=== PATIENT | female | born 1995 | race Caucasian/White ===

== ENCOUNTER 2017-09-01 15:48 | Emergency (ER) | payer OTHER ==
--- NOTE | 2017-09-01 17:06 | ER Document Report ---
HPI - HPI Pain Level: 4 Notes: Patient is a 22-year-old female who presents ED complaining of left knee pain status post injury prior to arrival. Patient states that she was skating when she fell on her knee and a rollerblade hit her in the knee. Patient states that most of her pain is medially. Patient states that she has been limping and has been having trouble bending her knee because of the pain. Patient has noticed a little area of swelling on the medial side. No other concerns or complaints at this time. Pain does not radiate. Denies any headache, fever, head injury, neck pain, URI, sore throat, chest pain, palpitations, syncope, cough, shortness of breath, wheeze, dyspnea, abdominal pain, nausea/vomiting/ diarrhea, urinary retention, dysuria, hematuria, numbness/tingling, muscle paralysis/weakness, or rash. - ROS Systems Reviewed and Negative: Yes All other systems reviewed and negative Past Medical History - Social History Smoking Status: Never Smoker Family History: Reviewed & Not Pertinent Vertical Provider Document - CONSTITUTIONAL Agree With Documented VS: Yes Notes: PHYSICAL EXAMINATION: GENERAL: Well-appearing, well-nourished and in no acute distress. LUNGS: Breath sounds clear to auscultation bilaterally and equal. No wheezes rales or rhonchi. HEART: Regular rate and rhythm without murmurs, rubs, gallops. Musculoskeletal: Left knee: LROM to passive/active. Strength 5+/5. + mild swelling to the medial proximal knee. + tenderness to the medial patella and medial prox knee. Pt would not allow for adequate ligamentous/meniscus testing at this time. No posterior pain. Sally neg b/l. Patellar/Quad tendon intact. Extremities: No cyanosis, clubbing, or edema b/l. Peripheral pulses 2+. Capillary refill less than 3 seconds. NEUROLOGICAL: Normal speech. Normal sensory, motor exams PSYCH: Normal mood, normal affect. SKIN: Warm, Dry, normal turgor, no rashes or lesions noted. - RESPIRATORY O2 Sat by Pulse Oximetry: 97 Course - Re-evaluation Re-evalutation: 09/01/17 17:12 Patient is an afebrile, well-hydrated, 22-year-old female who presents ED with left knee pain, suspect contusion. Vitals are stable. PE is otherwise unremarkable for any neurovascular compress, obvious tendon/ligament rupture, obvious fracture/dislocation, septic joint. X-ray was unremarkable for any acute pathology. Crutches were provided an Abdi wrap was placed. Recommend conservative measures for symptoms with close monitoring. Recheck with the PCM in 3-5 days. Consider consult with orthopedics/physical therapy. Return to the ED with any worsening/concerning symptoms otherwise as reviewed discharge. Patient is in agreement. - Vital Signs Vital signs: Temp Pulse Resp BP Pulse Ox 97.7 F 92 14 118/75 97 09/01/17 16:00 09/01/17 16:00 09/01/17 16:00 09/01/17 16:00 09/01/17 16:00 Discharge - Discharge Clinical Impression: Left knee pain Qualifiers: Chronicity: acute Qualified Code(s): M25.562 - Pain in left knee Condition: Stable Disposition: HOME, SELF-CARE Instructions: Abdi Wrap ([facility]), Contusion ([facility]), Use of Crutches ([facility]), Ice & Elevation ([facility]) Additional Instructions: Rest, Ice, Compression, Elevation Use crutches/abdi-wrap as directed Tylenol/ibuprofen as needed Light stretches daily Strength exercises as able Moist heat and massage may help F/u with your PCP in 3-5 days for a recheck Consider consult(s) with Orthopedics/physical therapy for ongoing/worsening symptoms Return to the ED with any worsening symptoms and/or development of fever, headache, chest pain, palpitations, syncope, shortness of breath, trouble breathing, abdominal pain, n/v/d, muscle weakness/paralysis, numbness/tingling, swelling, redness, or other worsening symptoms that are concerning to you. Prescriptions: Naproxen 500 mg PO BID PRN #30 tablet PRN Reason: Referrals: [facility] [Provider Group] - Follow up as needed
--- NOTE | 2017-09-01 17:11 | RADIOLOGY REPORT (SQ) ---
EXAM DESCRIPTION: KNEE LEFT 4 VIEW COMPLETED DATE/TIME: 09/01/2017 4:55 pm REASON FOR STUDY: left knee pain s/p injury, plz include sunrise COMPARISON: None. NUMBER OF VIEWS: Five views. TECHNIQUE: AP, lateral, both oblique, and sunrise patella radiographic images acquired of the left k nee. LIMITATIONS: None. FINDINGS: MINERALIZATION: Normal. BONES: No acute fracture or dislocation. No worrisome bone lesions. JOINT: No effusion. SOFT TISSUES: No soft tissue swelling. No radio-opaque foreign body. OTHER: No other significant finding. IMPRESSION: NEGATIVE STUDY OF THE LEFT KNEE. NO RADIOGRAPHIC EVIDENCE OF ACUTE INJURY. TECHNICAL DOCUMENTATION: JOB ID: [id number] [employer]- All Rights Reserved
[2017-09-01 17:32] VITALS: BP 96/69
== END 2017-09-01 17:32 | disposition home or self-care (01) ==
LOC: ER 15:48
DX: M25.562 Pain in left knee (principal); W19.XXXA Unspecified fall, initial encounter; Y93.51 Activity, roller skating (inline) and skateboarding
CPT/HCPCS: 99283

== ENCOUNTER 2018-05-11 07:02 | Emergency (ER) | payer MEDICAID, OTHER ==
[2018-05-11] MEDS ORDERED: NORMAL SALINE 1000 ML 1,000 ML IV ONE (07:37)
[2018-05-11] MEDS ORDERED: ONDANSETRON HCL INJ/PF 4 MG/2 ML SDV IV ONE ×2 (07:37→09:17)
--- NOTE | 2018-05-11 07:38 | ER Document Report ---
ED GI/ - General Chief Complaint: Abdominal Pain Stated Complaint: LOWER ABDOMINAL PAIN Time Seen by Provider: 05/11/18 07:31 Mode of Arrival: Ambulatory Information source: Patient Notes: Patient presents complaining of nausea vomiting diarrhea that started last night around 10 PM. Patient states that she had [place] food and that her symptoms started shortly after eating this meal. Patient states she is vomited about 10 times and had same number of diarrhea bowel movements. Patient states that the vomiting and diarrhea symptoms started initially and then she started to develop epigastric and lower abdominal pain. Patient denies any fever but does report chills. Patient denies any urinary symptoms. Patient suspects that she has food poisoning. - HPI Patient complains to provider of: Abdominal pain, Diarrhea, Vomiting. No: , Vaginal bleeding Onset: Yesterday Timing/Duration: Gradual Quality of pain: Achy, Cramping Pain Level: 3 Location: Epigastric, Pelvis Vaginal bleeding (Compared to normal period): None Associated symptoms: Chills, Diarrhea, Loss of appetite, Nausea, Vomiting Exacerbated by: Denies Relieved by: Denies Similar symptoms previously: No Recently seen / treated by doctor: No - Related Data Allergies/Adverse Reactions: No Known Allergies Allergy (Unverified 05/11/18 07:54) Past Medical History - General Information source: Patient - Social History Smoking Status: Never Smoker Smoking Education Provided: No Frequency of alcohol use: None Drug Abuse: None Occupation: None Lives with: Family Family History: Reviewed & Not Pertinent - Medical History Medical History: Other - Cerebral palsy Renal/ Medical History: Denies: Hx Peritoneal Dialysis GI Medical History: Reports: Hx Gastroesophageal Reflux Disease Surgical Hx: Negative Review of Systems - Review of Systems Constitutional: Chills. denies: Fever EENT: No symptoms reported Cardiovascular: No symptoms reported. denies: Chest pain Respiratory: No symptoms reported. denies: Cough, Short of breath Gastrointestinal: Abdominal pain, Diarrhea, Nausea, Vomiting, Poor appetite. denies: Constipation Genitourinary: No symptoms reported Female Genitourinary: No symptoms reported Musculoskeletal: No symptoms reported. denies: Back pain Skin: No symptoms reported. denies: Rash Hematologic/Lymphatic: No symptoms reported Neurological/Psychological: No symptoms reported Physical Exam - Vital signs Vitals: Temp Pulse Resp BP Pulse Ox 98.3 F 84 16 110/78 100 05/11/18 07:07 05/11/18 07:07 05/11/18 07:07 05/11/18 07:07 05/11/18 07:07 - General General appearance: Appears well, Alert In distress: None - HEENT Head: Normocephalic, Atraumatic Eyes: Normal Conjunctiva: Normal Nasal: Normal Mouth/Lips: Normal Mucous membranes: Dry Pharynx: Normal Neck: Normal, Supple. No: Lymphadenopathy - Respiratory Respiratory status: No respiratory distress Chest status: Nontender Breath sounds: Normal. No: Rales, Rhonchi, Stridor, Wheezing Chest palpation: Normal - Cardiovascular Rhythm: Regular Heart sounds: S1 appreciated, S2 appreciated Murmur: No - Abdominal Inspection: Normal Distension: No distension Bowel sounds: Normal Tenderness: Tender - epig, lower pelvic. No: Guarding Organomegaly: No organomegaly - Back Back: Normal, Nontender. No: CVA tenderness - Extremities General upper extremity: Normal inspection, Normal strength General lower extremity: Normal inspection, Normal strength - Neurological Neuro grossly intact: Yes Cognition: Normal [place] Coma Scale Eye Opening: Spontaneous Prema Coma Scale Verbal: Oriented [place] Coma Scale Motor: Obeys Commands [place] Coma Scale Total: 15 - Psychological Associated symptoms: Normal affect, Normal mood - Skin Skin Temperature: Warm Skin Moisture: Dry Skin Color: Normal Course - Re-evaluation Re-evalutation: 05/11/18 09:17 Patient reports that nausea is improved although not resolved. Patient states abdominal pain is gone at this time. Abdomen is soft and nontender. Additional nausea medication ordered. 05/11/18 10:29 Patient reports that nausea is resolved at this time. Patient without any additional vomiting during ER stay. Patient denies any urinary tract symptoms such as frequency or dysuria. Patient with some leukocyte esterase noted on urinalysis although no other signs worrisome for infection. Will culture urine at this time and defer any antibiotics. Discussed plan of care with patient, patient family agreeable. Patient presents with abdominal pain without signs of peritonitis or other life-threatening or serious etiology. Patient appears stable for discharge and has been instructed to return immediately if the symptoms worsen in any way for reevaluation. The patient has been instructed to return if the symptoms worsen or change in any way. - Vital Signs Vital signs: Temp Pulse Resp BP Pulse Ox 97.7 F 86 16 97/60 L 97 05/11/18 11:00 05/11/18 11:00 05/11/18 07:08 05/11/18 11:00 05/11/18 07:08 - Laboratory Result Diagrams: 05/11/18 08:06 05/11/18 08:06 Laboratory results interpreted by me: 05/11/18 09:46 Urine Urobilinogen 2.0 H Ur Leukocyte Esterase TRACE H Labs- Entire Visit 05/11/18 05/11/18 05/11/18 08:06 08:06 08:06 WBC 5.8 RBC 4.19 Hgb 13.2 Hct 38.5 MCV 92 MCH 31.4 MCHC 34.2 RDW 13.7 Plt Count 184 Seg Neutrophils % 59.1 Lymphocytes % 29.6 Monocytes % 9.6 Eosinophils % 1.3 Basophils % 0.4 Absolute Neutrophils 3.4 Absolute Lymphocytes 1.7 Absolute Monocytes 0.6 Absolute Eosinophils 0.1 Absolute Basophils 0.0 Sodium 139.3 Potassium 3.9 Chloride 105 Carbon Dioxide 24 Anion Gap 10 BUN 9 Creatinine 0.56 Est GFR ( Amer) > 60 Est GFR (Non-Af Amer) > 60 Glucose 88 Calcium 9.5 Total Bilirubin 0.5 Direct Bilirubin 0.0 Neonat Total Bilirubin Not Reportable Neonat Direct Bilirubin Not Reportable Neonat Indirect Bili Not Reportable AST 18 ALT 18 Alkaline Phosphatase 53 Total Protein 6.5 Albumin 3.9 Lipase 81.1 Serum HCG, Qual NEGATIVE Urine Color Urine Appearance Urine pH Ur Specific Vilas Urine Protein Urine Glucose (UA) Urine Ketones Urine Blood Urine Nitrite Urine Bilirubin Urine Urobilinogen Ur Leukocyte Esterase Urine WBC (Auto) Urine RBC (Auto) Squamous Epi Cells Auto Urine Mucus (Auto) Urine Ascorbic Acid 05/11/18 09:46 WBC RBC Hgb Hct MCV MCH MCHC RDW Plt Count Seg Neutrophils % Lymphocytes % Monocytes % Eosinophils % Basophils % Absolute Neutrophils Absolute Lymphocytes Absolute Monocytes Absolute Eosinophils Absolute Basophils Sodium Potassium Chloride Carbon Dioxide Anion Gap BUN Creatinine Est GFR ( Amer) Est GFR (Non-Af Amer) Glucose Calcium Total Bilirubin Direct Bilirubin Neonat Total Bilirubin Neonat Direct Bilirubin Neonat Indirect Bili AST ALT Alkaline Phosphatase Total Protein Albumin Lipase Serum HCG, Qual Urine Color YELLOW Urine Appearance SLIGHTLY-CLOUDY Urine pH 5.0 Ur Specific [place] 1.026 Urine Protein NEGATIVE Urine Glucose (UA) NEGATIVE Urine Ketones NEGATIVE Urine Blood NEGATIVE Urine Nitrite NEGATIVE Urine Bilirubin NEGATIVE Urine Urobilinogen 2.0 H Ur Leukocyte Esterase TRACE H Urine WBC (Auto) 11 Urine RBC (Auto) 2 Squamous Epi Cells Auto 5 Urine Mucus (Auto) MANY Urine Ascorbic Acid NEGATIVE Discharge - Discharge Clinical Impression: Nausea vomiting and diarrhea Abdominal pain Qualifiers: Abdominal location: unspecified location Qualified Code(s): R10.9 - Unspecified abdominal pain Condition: Stable Disposition: HOME, SELF-CARE Additional Instructions: Return immediately for any new or worsening symptoms Followup with your primary care provider, call tomorrow to make a followup appointment VOMITING: Vomiting (or nausea without vomiting) can be caused by many other different problems. It can mean that something's wrong with the stomach, such as ulcers or inflammation or the intestinal tract, such as appendicitis. But it can also be a symptom of a problem that has nothing to do with the stomach or intestines. Vomiting is common with severe headaches, earaches, tonsillitis, and kidney infections, etc. We see it with pneumonia or heart attacks. Drugs can cause nausea and vomiting. Many abdominal problems cause vomiting; for example, gallstones, kidney stones, pancreatitis, and intestinal obstruction ( blocked bowels). In most cases, curing the vomiting depends on fixing the problem that caused it. For temporary relief, we may use an anti-nausea medicine. For home use, we can prescribe suppositories, chewable pills, pills that dissolve in the mouth, or liquid anti-nausea drugs. If the vomiting seems to be caused by a problem in the stomach, acid-suppressing drugs may be prescribed as well. It's important to avoid dehydration. Sip small amounts of clear liquids ( soft drinks, tea, broth, etc) . Try to take fluids frequently even if you are vomiting to prevent dehydration. Take increasing amounts of fluid and when liquids are being consumed successfully, advance to small amounts of bland food (toast, soups, mashed potatoes, etc.) until you are able to resume a regular diet. Avoid aspirin, tobacco, and alcohol. If the vomiting worsens, if the problem that's making you vomit worsens, or if there's evidence of bleeding in the stomach (such as black, tarry stool, or bloody or black vomit), you should return immediately. Also, return if abdominal pain worsens or becomes localized to one area or you develop high fever. Call your doctor if you aren't improved in 24 hours. DIARRHEA, NON-SPECIFIC: Diarrhea means frequent, watery stools. There are many causes. Any problem that keeps the intestinal tract from absorbing water from the stool can lead to diarrhea. A sudden new diarrhea problem is usually caused by a virus, food sensitivity, toxic bacteria, or drugs. In this case, we expect the problem to go away soon. Testing is done only if you seem seriously ill from the diarrhea. If you have chronic diarrhea, or diarrhea that keeps coming back, we need to find out why. Chronic diarrhea can be due to inflammation of the bowels such as Crohn's disease or ulcerative colitis, food sensitivity such as intolerance to lactose or wheat protein, irritable bowel syndrome, and other problems. If your diarrhea is a significant problem but it's not clear why you have it, we' ll refer you to a specialist for further testing. During an episode of diarrhea, drink small amounts (two to six ounces) of clear liquids (soft drinks, sport drinks, herb teas, broth, etc). Take fluids frequently to prevent dehydration. It's usually not a problem to take mild anti- diarrhea medication such as Kaopectate or Pepto-Bismol. As the diarrhea eases, advance to small amounts of bland food (mashed potato, toast) for 24 hours. Call the physician if blood appears in your vomit or stool, if vomiting lasts longer than 24 hours, if the abdominal pain worsens or becomes localized to one area, if you develop high fever, or if you become lightheaded and weak. INTRAVENOUS (I V) FLUIDS: As part of your care today, you received intravenous (IV) fluids. IV fluids are administered to patients who are dehydrated or to those who have certain chemical (electrolyte) abnormalities that need correcting. ANTINAUSEA MEDICATION: You have been given a medication to suppress nausea and vomiting. This type of medication can be given as a shot, pill, or suppository. It will usually last for many hours. Pills and shots usually last six to eight hours. For the typical illness, only one or two doses of the medication may be necessary. Mild lightheadedness may occur. This type of medicine can cause drowsiness. Do not drive or operate dangerous machinery while under its influence. Do not mix with alcohol. See your doctor at once if you have muscle spasms or tightness, or uncontrollable motions (particularly of the neck, mouth, or jaw). Persistent vomiting or severe lightheadedness should also be evaluated by the physician. FOLLOW-UP CARE: If you have been referred to a physician for follow-up care, call the physician s office for an appointment as you were instructed or within the next two days. If you experience worsening or a significant change in your symptoms, notify the physician immediately or return to the Emergency Department at any time for re-evaluation. Prescriptions: Ondansetron HCl [Zofran 4 mg Tablet] 1 - 2 tab PO Q6 PRN #15 tablet PRN Reason: [facility]errals: [facility] [Provider Group] - Follow up as needed
[2018-05-11 08:39] LABS: ABSOLUTE EOSINOPHILS # (AUTO) 0.1 10^3/uL (0.0-0.6); ABSOLUTE LYMPHOCYTES (AUTO) 1.7 10^3/uL (0.5-4.7); ABSOLUTE MONOCYTES (AUTO) 0.6 10^3/uL (0.1-1.4); ABSOLUTE NEUT (AUTO) 3.4 10^3/uL (1.7-8.2); BASOPHILS % (AUTO) 0.4 % (0-2); EOSINOPHILS % (AUTO) 1.3 % (0-6); HEMATOCRIT 38.5 % (36.0-47.0); HEMOGLOBIN 13.2 g/dL (12.0-15.5); LYMPHOCYTES % (AUTO) 29.6 % (13-45); MEAN CORPUSCULAR HEMOGLOBIN 31.4 pg (27.0-33.4); MEAN CORPUSCULAR HGB CONC 34.2 g/dL (32.0-36.0); MEAN CORPUSCULAR VOLUME 92 fl (80-97); MONOCYTES % (AUTO) 9.6 % (3-13); PLATELET COUNT 184 10^3/uL (150-450); RED BLOOD COUNT 4.19 10^6/uL (3.72-5.28); RED CELL DISTRIBUTION WIDTH 13.7 % (11.5-14.0); SEGMENTED NEUTROPHILS % (AUTO) 59.1 % (42-78); TOTAL CELLS COUNTED % (AUTO) 100 %; WHITE BLOOD COUNT 5.8 10^3/uL (4.0-10.5)
[2018-05-11 08:51] LABS: ALANINE AMINOTRANSFERASE 18 U/L (9-52); ALBUMIN 3.9 g/dL (3.5-5.0); ALKALINE PHOSPHATASE 53 U/L (38-126); ANION GAP 10 (5-19); ASPARTATE AMINO TRANSFERASE 18 U/L (14-36); BILIRUBIN,TOTAL 0.5 mg/dL (0.2-1.3); BLOOD UREA NITROGEN 9 mg/dL (7-20); CALCIUM 9.5 mg/dL (8.4-10.2); CARBON DIOXIDE 24 mmol/L (22-30); CHLORIDE 105 mmol/L (98-107); GLUCOSE 88 mg/dL (75-110); LIPASE 81.1 U/L (23-300); POTASSIUM 3.9 mmol/L (3.6-5.0); SODIUM 139.3 mmol/L (137-145); TOTAL PROTEIN 6.5 g/dL (6.3-8.2)
[2018-05-11 10:22] LABS: APPEARANCE,URINE SLIGHTLY-CLOUDY; BILIRUBIN,URINE NEGATIVE (NEGATIVE); COLOR,URINE YELLOW; GLUCOSE, URINE NEGATIVE (NEGATIVE); KETONES,URINE NEGATIVE (NEGATIVE); LEUKOCYTE ESTERASE,URINE TRACE (NEGATIVE); NITRITE,URINE NEGATIVE (NEGATIVE); PROTEIN,URINE NEGATIVE (NEGATIVE); URINE SPECIFIC GRAVITY 1.026
[2018-05-11 11:12] VITALS: BP 97/60
== END 2018-05-11 11:11 | disposition home or self-care (01) ==
LOC: ER 07:02
DX: R11.2 Nausea with vomiting, unspecified (principal); R19.7 Diarrhea, unspecified; R10.9 Unspecified abdominal pain; R10.13 Epigastric pain; R10.30 Lower abdominal pain, unspecified
CPT/HCPCS: 96376; 99284; 96361; 96374; 36415; 87086; 83690; 84703; 85025; 80053; 81001; J2405; J7030

== ENCOUNTER 2018-07-02 05:28 | Emergency (ER) | payer MEDICAID ==
[2018-07-02 05:33] VITALS: BP 111/70
--- NOTE | 2018-07-02 07:30 | ER Document Report ---
ED Oral Problem - General Chief Complaint: Lip Injury Stated Complaint: LIP INJURY Time Seen by Provider: 07/02/18 06:18 Notes: 23-year-old female comes in complaining of right lower lip pain. Patient was wrestling with family and took a knee to the jaw. She has been able to eat and move her jaw however she did bite her lip at that point. This was last . Since then the wounds are starting to heal however they have lead to ulcerations around the laceration. She patient complains of severe 10 out of 10 pain around her right lower jaw. States she has been using Orajel without success. Denies any other problems swallowing denies any loose teeth. Denies any head or neck injuries. Denies any extremity numbness tingling or weakness. Denies any bleeding. Denies fever chills TRAVEL OUTSIDE OF THE [place] IN LAST 30 DAYS: No - Related Data Allergies/Adverse Reactions: No Known Allergies Allergy (Unverified 05/11/18 07:54) Past Medical History - Social History Smoking Status: Never Smoker Frequency of alcohol use: None Drug Abuse: None Family History: Reviewed & Not Pertinent Patient has suicidal ideation: No Patient has homicidal ideation: No Renal/ Medical History: Denies: Hx Peritoneal Dialysis GI Medical History: Reports: Hx Gastroesophageal Reflux Disease Review of Systems - Review of Systems Constitutional: denies: Chills, Fever EENT: Mouth pain Cardiovascular: denies: Chest pain, Dyspnea Gastrointestinal: denies: Nausea, Vomiting Genitourinary: denies: Dysuria, Hematuria Musculoskeletal: denies: Back pain Neurological/Psychological: denies: Lost consciousness, Headaches -: Yes All other systems reviewed and negative Physical Exam - Vital signs Vitals: Temp Pulse Resp BP Pulse Ox 97.7 F 68 16 111/70 98 07/02/18 05:29 07/02/18 05:29 07/02/18 05:29 07/02/18 05:29 07/02/18 05:29 - Notes Notes: GENERAL_APPEARANCE: well_nourished, alert, cooperative, no_acute_distress VITALS: reviewed, see vital signs table. HEAD: no_swelling\tenderness on the head. EYES: PERRL, EOMI, conjunctiva_clear. NOSE: no_nasal_discharge. MOUTH: (-)decreased moisture. Right lower lip there is a healing laceration about a centimeter which is well within side of the lip nowhere close to the vermilion border. It is not through and through. There is ulcerations around it. There is no significant redness or significant drainage. No signs of abscess induration. No fluctuance. THROAT: no_throat_inflammation, no_airway_obstruction. no_lymphadenopathy NECK: supple, no_neck_tenderness, (-)thyromegaly. SKIN: warm, dry, good_color, no_rash. MENTAL_STATUS: speech_clear, oriented_X_3, normal_affect, responds_ appropriately to questions. Course - Re-evaluation Re-evalutation: 07/02/18 07:27 Patient is a healing lip laceration for the last . This is already ulcerated and started to heal around it. There is no signs of any significant infection but I will place the patient on some prophylactic antibiotics. I encouraged her to keep using Orajel. Will prescribe some ibuprofen for home. The jaw itself there is no malocclusion. Able to open and close her jaw without signs of malalignment there is no loose teeth on exam. No drooling no stridor. This should heal well on its own I advised her to use Listerine mouthwash. Orajel. - Vital Signs Vital signs: Temp Pulse Resp BP Pulse Ox 97.7 F 68 16 111/70 98 07/02/18 05:29 07/02/18 05:29 07/02/18 05:29 07/02/18 05:29 07/02/18 05:29 Discharge - Discharge Clinical Impression: Lip laceration Qualifiers: Encounter type: initial encounter Qualified Code(s): S01.511A - Laceration without foreign body of lip, initial encounter Condition: Good Disposition: HOME, SELF-CARE Instructions: Prophylactic Antibiotic ([facility]), Laceration Care ([facility]) Additional Instructions: Use Listerine mouthwash for cleaning this will staying a bit but will keep the area free of infection. Take the antibiotic as needed use Orajel for pain and ibuprofen. Prescriptions: Cephalexin [Cephalexin 500 MG Tablet] 500 mg PO TID #21 tablet Referrals: MARK MARTIN, [facility] [Primary Care Provider] - Follow up as needed
== END 2018-07-02 07:51 | disposition home or self-care (01) ==
LOC: ER 05:28
DX: S01.511A Laceration without foreign body of lip, initial encounter (principal); W50.0XXA Accidental hit or strike by another person, initial encounter; Y93.72 Activity, wrestling
CPT/HCPCS: 99283

== ENCOUNTER 2018-10-02 12:22 | Emergency (ER) | payer OTHER, MEDICAID ==
[2018-10-02] MEDS ORDERED: IBUPROFEN 600 MG TABLET PO ONE (12:39)
--- NOTE | 2018-10-02 13:09 | RADIOLOGY REPORT (SQ) ---
EXAM DESCRIPTION: FOOT RIGHT COMPLETE COMPLETED DATE/TIME: 10/02/2018 1:01 pm REASON FOR STUDY: heel pain, hit in heel with metal object COMPARISON: None. NUMBER OF VIEWS: Three views. TECHNIQUE: AP, lateral and oblique radiographic images acquired of the right foot. LIMITATIONS: None. FINDINGS: MINERALIZATION: Normal. BONES: No acute fracture or dislocation. No worrisome bone lesions. JOINTS: No effusions. SOFT TISSUES: No soft tissue swelling. No foreign body. OTHER: No other significant finding. IMPRESSION: NEGATIVE STUDY OF THE RIGHT FOOT. NO RADIOGRAPHIC EVIDENCE OF ACUTE INJURY. TECHNICAL DOCUMENTATION: JOB ID: [id number] [employer]- All Rights Reserved Reading location - IP/workstation name: [email or web address]
--- NOTE | 2018-10-02 13:36 | ER Document Report ---
HPI - HPI Time Seen by Provider: 10/02/18 12:33 Pain Level: 4 Notes: Patient is a 23-year-old female who presents with right ankle and right foot pain after she states that she was hit by a metal object while working. She states this happened just prior to arrival. She has not taken any medications for same. - REPRODUCTIVE Reproductive: DENIES: : - MUSCULOSKELETAL Musculoskeletal: REPORTS: Extremity pain - R ankle/foot Past Medical History - General Information source: Patient - Social History Smoking Status: Never Smoker Chew tobacco use (# tins/day): No Frequency of alcohol use: None Drug Abuse: None Family History: Reviewed & Not Pertinent Patient has suicidal ideation: No Patient has homicidal ideation: No Renal/ Medical History: Denies: Hx Peritoneal Dialysis GI Medical History: Reports: Hx Gastroesophageal Reflux Disease Vertical Provider Document - CONSTITUTIONAL Notes: PHYSICAL EXAMINATION: GENERAL: Well-appearing, well-nourished and in no acute distress. HEAD: Atraumatic, normocephalic. EYES: Pupils equal round extraocular movements intact, conjunctiva are normal. ENT: Nares patent NECK: Normal range of motion LUNGS: No respiratory distress Musculoskeletal: Normal range of motion, cap refill less than 3 seconds, normal motor and sensation distal to area of injury, tenderness to palpation to right calcaneal area. No swelling or erythema noted. No ecchymosis. NEUROLOGICAL: Normal speech, normal gait. PSYCH: Normal mood, normal affect. SKIN: Warm, Dry, normal turgor, no rashes or lesions noted. - INFECTION CONTROL TRAVEL OUTSIDE OF THE [place] IN LAST 30 DAYS: No Course - Re-evaluation Re-evalutation: X-rays negative for any acute findings. - Vital Signs Vital signs: Temp Pulse Resp BP Pulse Ox 98.1 F 78 16 102/62 99 10/02/18 12:26 10/02/18 12:26 10/02/18 12:26 10/02/18 12:26 10/02/18 12:26 Discharge - Discharge Clinical Impression: Contusion Condition: Stable Disposition: HOME, SELF-CARE Additional Instructions: Contusion Your injury has resulted in a contusion -- a crushing of the deep tissues. No injury to important structures was detected during the physician's exam. Contusions vary in the amount of pain they cause, and in the length of time required for healing. Typically, the area will become bruised, and will remain painful to touch for two or three weeks. However, most patients are back to working and playing within a few days. After the initial period of rest and cold-packs, your symptoms (together with the doctor's recommendations) will determine how rapidly you can get back to full activity. Usually this means "do what feels okay, but don't do things that hurt." If re-examination was recommended, it's important to follow up as instructed. Call the doctor or return any time if pain increases, if swelling becomes severe, if you develop numbness or weakness in an injured extremity, or if any other alarming symptoms occur. Ice & Elevation Apply ice packs frequently against the painful area. Many different schedules are recommended, such as "20 minutes on, 20 minutes off" or "one hour ice, two hours rest." If you need to work, you may need to go longer between ice treatments. You should plan to have the area ice packed AT LEAST one-fourth of the time. The ice should be applied over the wrap, tape, or splint, or over a layer of cloth -- not directly against the skin. Some ice bags have a built-in cloth and can be put directly on the skin. Your injured part should be elevated as much as possible over the next 48 hours. Try to keep the injury above the level of the heart. Avoid use of the injured area. Elevation and rest will decrease the swelling. Ibuprofen Ibuprofen is an excellent, safe drug for pain control. In addition, it has potent antiinflammatory effects which are beneficial, especially in the treatment of injuries, arthritis, or tendonitis. It's best to take ibuprofen with food. Persons with ulcer disease or allergy to aspirin should notify their physician of this before taking ibuprofen. Take the medication exactly as prescribed. Don't take additional doses unless instructed to do so by your doctor. If you develop wheezing, shortness of breath, hives, faintness, stomach pain, vomiting, or dark black stools, retu rn for re-evaluation at once. The x-rays were negative for any fracture or dislocation. Please take ibuprofen [id number] as directed to help with pain and inflammation. Forms: Return to Work Referrals: VIRGINIA LUCERO FNP-C [Primary Care Provider] - Follow up as needed
[2018-10-02 13:59] VITALS: BP 99/53
== END 2018-10-02 14:02 | disposition home or self-care (01) ==
LOC: ER 12:22
DX: M25.571 Pain in right ankle and joints of right foot (principal); S90.31XA Contusion of right foot, initial encounter; W22.09XA Striking against other stationary object, initial encounter; Y99.0 Civilian activity done for income or pay; K21.9 Gastro-esophageal reflux disease without esophagitis
CPT/HCPCS: 99283

== ENCOUNTER 2018-10-30 07:53 | Emergency (ER) | payer MEDICAID, OTHER ==
[2018-10-30] MEDS ORDERED: DIPH/PERTUSS(ACELL)/TETANUS VAC/PF 0.5 ML SYR (>=10YO) IM ONE (08:49)
--- NOTE | 2018-10-30 09:21 | ER Document Report ---
Addendum entered and electronically signed by EDDA BUSBY PA-C 10/30/18 09:45: Discharge - Discharge Clinical Impression: Puncture wound of left middle finger Condition: Good Disposition: HOME, SELF-CARE Instructions: Laceration Care ([facility]), Prophylactic Antibiotic ([facility]) Additional Instructions: Change dressing at least 2 times a day and one dirty or wet. Take the antibiotics until finished. I have also written you for one Diflucan pill this. From get a yeast infection. At this time there is no restrictions I would try to keep it clean and dry for 24 hours after that resume normal activity without a problem. Should you have any concerns or problems and return to ER for recheck. Prescriptions: Cephalexin Monohydrate [Keflex 500 mg Capsule] 500 mg PO Q6H 5 Days #20 capsule Fluconazole [Diflucan] 150 mg PO ONCE PRN #1 tablet PRN Reason: Forms: Return to Work Referrals: VIRGINIA LUCERO FNP-C [Primary Care Provider] - Follow up as needed Original Note: ED Wound - General Chief Complaint: Laceration Stated Complaint: FINGER LACERATION Time Seen by Provider: 10/30/18 08:49 Primary Care Provider: VIRGINIA LUCERO FNP-C [Primary Care Provider] - Follow up as needed Mode of Arrival: Ambulatory Information source: Patient Notes: Patient is a 23-year-old female who comes to the emergency room complaining of the left middle finger laceration. 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 It is more of a stab type wound than a laceration. Patient basically decided to come here because it was a jessie box truck owner operator and she needs updated tetanus shot. She does state that she saw some muscle tissue and bone when she pulled out the box truck owner operator. She denies any other injuries. TRAVEL OUTSIDE OF THE [place] IN LAST 30 DAYS: No - HPI Occurred: Just prior to arrival Onset/Duration: Sudden Quality of pain: Achy Severity: Mild Pain Level: 1 Context: Injury Skin Temperature: Warm Skin Color: Normal Capillary refill: < 3 seconds Sensations intact: Yes Distal pulses present: Yes Associated Symptoms: None - Related Data Allergies/Adverse Reactions: No Known Allergies Allergy (Verified 10/30/18 07:55) Past Medical History - General Information source: Patient - Social History Smoking Status: Never Smoker Cigarette use (# per day): No Chew tobacco use (# tins/day): No Smoking Education Provided: No Frequency of alcohol use: None Drug Abuse: None Lives with: Spouse/Significant other Family History: Reviewed & Not Pertinent Patient has suicidal ideation: No Patient has homicidal ideation: No Renal/ Medical History: Denies: Hx Peritoneal Dialysis GI Medical History: Reports: Hx Gastroesophageal Reflux Disease Review of Systems - Review of Systems Constitutional: No symptoms reported EENT: No symptoms reported Cardiovascular: No symptoms reported Respiratory: No symptoms reported Gastrointestinal: No symptoms reported Genitourinary: No symptoms reported Female Genitourinary: No symptoms reported Musculoskeletal: No symptoms reported Skin: See HPI Hematologic/Lymphatic: No symptoms reported Neurological/Psychological: No symptoms reported -: Yes All other systems reviewed and negative Physical Exam - Vital signs Vitals: Temp Pulse Resp BP Pulse Ox 98.1 F 74 18 112/64 97 10/30/18 07:58 10/30/18 07:58 10/30/18 07:58 10/30/18 07:58 10/30/18 07:58 Interpretation: Normal - Notes Notes: PHYSICAL EXAMINATION: GENERAL: Well-appearing, well-nourished and in no acute distress. HEAD: Atraumatic, normocephalic. EYES: Pupils equal round and reactive to light, extraocular movements intact, conjunctiva are normal. ENT: Nares patent, oropharynx clear without exudates. Moist mucous membranes. NECK: Normal range of motion, supple without lymphadenopathy LUNGS: Breath sounds clear to auscultation bilaterally and equal. No wheezes rales or rhonchi. HEART: Regular rate and rhythm without murmurs ABDOMEN: Soft, nontender, nondistended abdomen. No guarding, no rebound. No masses appreciated. Female : deferred Musculoskeletal: Examination of patient's left middle finger shows she has a puncture wound to the distal tip anterior pad. On physical examination there is no bleeding currently. There is no deficit in patient's tendon function. She has good flexion extension of the distal tip against resistance. Good cap refill in the nail bed of that finger. She has good night coordinator strength and displays good opposition with all fingers. The puncture wound is approximately three quarters of a centimeter its linear. NEUROLOGICAL: Normal speech, normal gait. Normal sensory, motor exams PSYCH: Normal mood, normal affect. SKIN: Warm, Dry, normal turgor, no rashes or lesions noted. - General General appearance: Appears well, Alert In distress: None - HEENT Head: Normocephalic, Atraumatic Eyes: Normal Conjunctiva: Normal Cornea: Normal Eyelashes: Normal Pupils: PERRL Mouth/Lips: Normal. No: Angioedema Mucous membranes: Normal, Moist - Respiratory Respiratory status: No respiratory distress Chest status: Nontender Breath sounds: Normal. No: Rales, Rhonchi, Wheezing Chest palpation: Normal - Cardiovascular Rhythm: Regular Heart sounds: Normal auscultation Murmur: No - Abdominal Inspection: Normal Distension: No distension Bowel sounds: Normal Tenderness: Nontender Organomegaly: No organomegaly - Back Back: Normal, Nontender - Extremities General upper extremity: Tender, Normal color, Normal ROM, Normal strength, Normal temperature. No: Normal inspection, Nontender General lower extremity: Normal inspection, Nontender, Normal color, Normal ROM, Normal temperature, Normal weight bearing. No: Sally's sign Hand: Other - See description of physical exam - Neurological Neuro grossly intact: Yes Cognition: Normal Orientation: AAOx4 Prema Coma Scale Eye Opening: Spontaneous [place] Coma Scale Verbal: Oriented [place] Coma Scale Motor: Obeys Commands [place] Coma Scale Total: 15 Speech: Normal Motor strength normal: LUE Sensory: Normal - Psychological Associated symptoms: Normal affect, Normal mood - Skin Skin Temperature: Warm Skin Moisture: Dry Skin Color: negative: Normal Skin irregularity: Laceration Location of irregularity: Extremities Course - Re-evaluation Re-evalutation: 10/30/18 09:29 After evaluation the patient's injury does not appear to be very serious she is full function of the distal tip of the middle finger on the left hand. The puncture wound was indeterminate on dapsone however again there was no tendon discrepancies. This time we are just going to clean it and bandaged. Place her on some antibiotics for a puncture wound. Patient did receive a tetanus shot here as well. She will be discharged back to work. - Vital Signs Vital signs: Temp Pulse Resp BP Pulse Ox 98.1 F 74 18 112/64 97 10/30/18 07:58 10/30/18 07:58 10/30/18 07:58 10/30/18 07:58 10/30/18 07:58 Discharge - Discharge Clinical Impression: Puncture wound of left middle finger Condition: Good Disposition: HOME, SELF-CARE Instructions: Laceration Care ([facility]), Prophylactic Antibiotic ([facility]) Additional Instructions: Change dressing at least 2 times a day and one dirty or wet. Take the antibiotics until finished. I have also written you for one Diflucan pill this. From get a yeast infection. At this time there is no restrictions I would try to keep it clean and dry for 24 hours after that resume normal activity without a problem. Should you have any concerns or problems and return to ER for recheck. Prescriptions: Cephalexin Monohydrate [Keflex 500 mg Capsule] 500 mg PO Q6H 5 Days #20 capsule Fluconazole [Diflucan] 150 mg PO ONCE PRN #1 tablet PRN Reason: Forms: Return to Work Referrals: VIRGINIA LUCERO, SENIOR MECHANICAL DESIGNER-C [Primary Care Provider] - Follow up as needed
[2018-10-30 09:54] VITALS: BP 86/62
== END 2018-10-30 09:54 | disposition home or self-care (01) ==
LOC: ER 07:53
DX: Z23 Encounter for immunization (principal); S61.233A Puncture wound without foreign body of left middle finger without damage to nail, initial encounter; W26.0XXA Contact with knife, initial encounter
CPT/HCPCS: 90471; 90715; 99283

== ENCOUNTER 2019-07-13 17:43 | Emergency (ER) | payer MEDICAID ==
[2019-07-13] MEDS ORDERED: LEVETIRACETAM 1000 MG/NACL-ISO 1,000 MG/100 ML RTUPB IV ONE (19:35)
[2019-07-13 20:25] LABS: APPEARANCE,URINE SLIGHTLY-CLOUDY; BILIRUBIN,URINE NEGATIVE (NEGATIVE); COLOR,URINE YELLOW; GLUCOSE, URINE NEGATIVE (NEGATIVE); KETONES,URINE TRACE mg/dL (NEGATIVE); PROTEIN,URINE NEGATIVE (NEGATIVE)
--- NOTE | 2019-07-13 20:42 | RADIOLOGY REPORT (SQ) ---
EXAM DESCRIPTION: RadLex: CT HEAD WITHOUT IV CONTRAST CLINICAL HISTORY: 24 years Female; ams TECHNIQUE: Noncontrast CT head. All CT scans at this facility use dose modulation, iterative reconstruction, and/or weight based dosing when appropriate to reduce radiation dose to as low as reasonably achievable. COMPARISON: None. FINDINGS: Peoples matter, white matter, ventricles, and cisterns are within normal limits. No acute hemorrhage or mass effect. Visualized portions of paranasal sinuses and mastoids are clear. Visualized portions of the calvarium are within normal limits. IMPRESSION: 1. No acute intracranial findings.
--- NOTE | 2019-07-13 20:45 | ER Document Report ---
ED General - General Chief Complaint: Seizure Stated Complaint: POSSIBLE SEIZURE Time Seen by Provider: 07/13/19 18:51 Primary Care Provider: VIRGINIA LUCERO FNP-C [Primary Care Provider] - Follow up as needed Information source: Patient, Relative TRAVEL OUTSIDE OF THE [place] IN LAST 30 DAYS: No - HPI Notes: Patient is brought in for seizures. 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 Relative states she had seizures as a child he does not have any until recently. They state over the last 3 weeks she has had some tonic-clonic seizures as well as some staring episodes. 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 However they state that the tonic-clonic seizures are new. They did see their neurologist recently and patient was started on Aptiom. Family states that patient is not better on Aptiom and is still having seizures. Patient has not recently had any new fevers chills sweats cough or cold symptoms. No known vomiting diarrhea or urinary symptoms. No no new trauma. 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 They feel that the stress may be causing the patient to have the seizures. Patient's seizure activity was intermittent. It was apparently brief. Nothing appeared to make it better or worse. No known radiation of the symptoms. - Related Data Allergies/Adverse Reactions: No Known Allergies Allergy (Verified 10/30/18 07:55) Past Medical History - General Information source: Relative - Social History Smoking Status: Never Smoker Chew tobacco use (# tins/day): No Frequency of alcohol use: Rare Drug Abuse: None Family History: Reviewed & Not Pertinent Patient has suicidal ideation: No Patient has homicidal ideation: No Renal/ Medical History: Denies: Hx Peritoneal Dialysis GI Medical History: Reports: Hx Gastroesophageal Reflux Disease Review of Systems - Review of Systems Constitutional: denies: Chills, Fever Cardiovascular: denies: Chest pain, Palpitations Respiratory: denies: Cough, Short of breath -: Yes All other systems reviewed and negative Physical Exam - Vital signs Vitals: Temp Pulse Resp BP Pulse Ox 97.8 F 82 16 100/60 98 07/13/19 17:44 07/13/19 17:44 07/13/19 17:44 07/13/19 17:44 07/13/19 17:44 Interpretation: Normal - General General appearance: Appears well, Alert - HEENT Head: Normocephalic, Atraumatic Eyes: Normal Pupils: PERRL - Respiratory Respiratory status: No respiratory distress Chest status: Nontender Breath sounds: Normal Chest palpation: Normal - Cardiovascular Rhythm: Regular Heart sounds: Normal auscultation Murmur: No - Abdominal Inspection: Normal Distension: No distension Bowel sounds: Normal Tenderness: Nontender Organomegaly: No organomegaly - Back Back: Normal, Nontender - Extremities General upper extremity: Normal inspection, Nontender, Normal color, Normal ROM, Normal temperature General lower extremity: Normal inspection, Nontender, Normal color, Normal ROM, Normal temperature, Normal weight bearing. No: Sally's sign - Neurological Cognition: Confused Orientation: Disoriented to time Prema Coma Scale Eye Opening: Spontaneous Prema Coma Scale Verbal: Confused [place] Coma Scale Motor: Obeys Commands [place] Coma Scale Total: 14 Cranial nerves: Other - Patient would not cooperate fully with cranial nerve exam but no obvious deficits. - Psychological Associated symptoms: Excessive sleeping, Flat affect - Skin Skin Temperature: Warm Skin Moisture: Dry Skin Color: Normal Course - Re-evaluation Re-evalutation: 07/13/19 21:54 Patient presents with some tonic-clonic seizure-like activity. She is currently on an absence seizure medicine called Aptiom. However she has been complaining of vertigo and dizziness at home which is a known side effect. I have informed the family that I would suggest she does not take any more of the Aptiom until she contacts a neurologist tomorrow morning. I am going to send the patient home on Keppra since she had some tonic-clonic like activity until he can fo llow-up with neurology. She also has a mildly low potassium which I am going to replace here and have instructed the family on foods and drinks that will increase potassium. - Vital Signs Vital signs: Temp Pulse Resp BP Pulse Ox 98.2 F 65 16 91/45 L 97 07/13/19 19:01 07/13/19 19:01 07/13/19 19:01 07/13/19 19:01 07/13/19 19:01 - Laboratory Result Diagrams: 07/13/19 20:42 07/13/19 20:42 Laboratory results interpreted by me: 07/13/19 07/13/19 07/13/19 19:52 20:42 20:42 RBC 3.68 L Hgb 11.6 L Hct 34.1 L RDW 14.3 H Plt Count 130 L Potassium 3.1 L Creatinine 0.49 L Total Protein 6.0 L Urine Ketones TRACE H Urine Urobilinogen 4.0 H Leukocyte Esterase Rfl SMALL H - Diagnostic Test Radiology reviewed: Image reviewed, Reports reviewed Discharge - Discharge Clinical Impression: Seizure, Hypokalemia Condition: Stable Disposition: HOME, SELF-CARE Instructions: Seizure, Known Epileptic ([facility]) Additional Instructions: Please call your neurologist first thing in the morning to arrange follow-up Prescriptions: Levetiracetam [Keppra 500 mg Tablet] 500 mg PO Q12 #60 tablet Forms: Return to Work Referrals: VIRGINIA LUCERO, FORESTRY SCIENTIST-C [Primary Care Provider] - Follow up tomorrow
[2019-07-13 21:07] LABS: ABSOLUTE EOSINOPHILS # (AUTO) 0.1 10^3/uL (0.0-0.6); ABSOLUTE LYMPHOCYTES (AUTO) 1.8 10^3/uL (0.5-4.7); ABSOLUTE MONOCYTES (AUTO) 0.5 10^3/uL (0.1-1.4); BASOPHILS % (AUTO) 0.2 % (0-2); EOSINOPHILS % (AUTO) 1.3 % (0-6); HEMATOCRIT 34.1 % (36.0-47.0); HEMOGLOBIN 11.6 g/dL (12.0-15.5); LYMPHOCYTES % (AUTO) 28.4 % (13-45); MEAN CORPUSCULAR HEMOGLOBIN 31.6 pg (27.0-33.4); MEAN CORPUSCULAR HGB CONC 34.2 g/dL (32.0-36.0); MEAN CORPUSCULAR VOLUME 93 fl (80-97); MONOCYTES % (AUTO) 8.1 % (3-13); PLATELET COUNT 130 10^3/uL (150-450); RED BLOOD COUNT 3.68 10^6/uL (3.72-5.28); RED CELL DISTRIBUTION WIDTH 14.3 % (11.5-14.0); TOTAL CELLS COUNTED % (AUTO) 100 %; WHITE BLOOD COUNT 6.4 10^3/uL (4.0-10.5)
[2019-07-13 21:26] LABS: ALBUMIN 3.5 g/dL (3.5-5.0); ALKALINE PHOSPHATASE 54 U/L (38-126); ANION GAP 12 (5-19); ASPARTATE AMINO TRANSFERASE 19 U/L (14-36); BILIRUBIN,DIRECT 0.2 mg/dL (0.0-0.4); BILIRUBIN,TOTAL 0.4 mg/dL (0.2-1.3); BLOOD UREA NITROGEN 9 mg/dL (7-20); CALCIUM 8.6 mg/dL (8.4-10.2); CARBON DIOXIDE 22 mmol/L (22-30); CHLORIDE 106 mmol/L (98-107); GLUCOSE 89 mg/dL (75-110); POTASSIUM 3.1 mmol/L (3.6-5.0)
[2019-07-13] MEDS ORDERED: POTASSIUM CHLORIDE 20 MEQ PACKET PO ONE (21:49)
[2019-07-13 22:59] VITALS: BP 102/51
== END 2019-07-13 22:51 | disposition home or self-care (01) ==
LOC: ER 17:43
DX: R56.9 Unspecified convulsions (principal); E87.6 Hypokalemia; R41.0 Disorientation, unspecified; R42 Dizziness and giddiness
CPT/HCPCS: 99284; 96374; 36415; 87086; 84702; 85025; 80053; 81001; 70450; J1953; J3490

== ENCOUNTER 2019-11-30 14:55 | Emergency (ER) | payer MEDICAID ==
[2019-11-30] MEDS ORDERED: NORMAL SALINE 1000 ML 1,000 ML IV ONE (15:24)
[2019-11-30] MEDS ORDERED: METOCLOPRAMIDE HCL INJ/PF 10 MG/2 ML SDV IV ONE (15:24)
--- NOTE | 2019-11-30 15:26 | ER Document Report ---
ED Medical Screen (RME) - General Chief Complaint: Blood Pressure Problem Stated Complaint: BLOOD PRESSURE CONCERNS,VOMITING Time Seen by Provider: 11/30/19 15:23 Primary Care Provider: VIRGINIA LUCERO FNP-C [Primary Care Provider] - Follow up as needed Notes: Patient is a 24-year-old female who presents to the emergency department with a chief complaint of vomiting and hematochezia. Patient went to her primary care doctor today and her blood pressure was 80s over 40s. She was referred to the emergency department for further evaluation. Patient states that she has pain in her mid upper abdomen. States that pain has been there since she has been vomiting. Exam: Mildly tender mid upper abdomen. I have greeted and performed a rapid initial assessment of this patient. A comprehensive ED assessment and evaluation of the patient, analysis of test results and completion of medical decision making process will be conducted by an additional ED providers. TRAVEL OUTSIDE OF THE [place] IN LAST 30 DAYS: No - Related Data Allergies/Adverse Reactions: No Known Allergies Allergy (Verified 10/30/18 07:55) Past Medical History Renal/ Medical History: Denies: Hx Peritoneal Dialysis GI Medical History: Reports: Hx Gastroesophageal Reflux Disease Physical Exam - Vital signs Vitals: Temp Pulse Resp BP Pulse Ox 98.1 F 80 18 97/56 L 98 11/30/19 15:11/30/19 15:11/30/19 15:11/30/19 15:00 11/30/19 15:00 Course - Vital Signs Vital signs: Temp Pulse Resp BP Pulse Ox 98.1 F 80 18 97/56 L 98 11/30/19 15:11/30/19 15:11/30/19 15:11/30/19 15:00 11/30/19 15:00 Doctor's Discharge - Discharge Referrals: VIRGINIA LUCERO FNP-C [Primary Care Provider] - Follow up as needed
[2019-11-30 16:10] LABS: APPEARANCE,URINE CLEAR; BILIRUBIN,URINE NEGATIVE (NEGATIVE); COLOR,URINE YELLOW; GLUCOSE, URINE NEGATIVE (NEGATIVE); KETONES,URINE NEGATIVE (NEGATIVE); LEUKOCYTE ESTERASE,URINE NEGATIVE (NEGATIVE); NITRITE,URINE NEGATIVE (NEGATIVE); PROTEIN,URINE NEGATIVE (NEGATIVE); URINE SPECIFIC GRAVITY 1.021
[2019-11-30 16:13] LABS: ABSOLUTE EOSINOPHILS # (AUTO) 0.1 10^3/uL (0.0-0.6); ABSOLUTE LYMPHOCYTES (AUTO) 1.3 10^3/uL (0.5-4.7); ABSOLUTE MONOCYTES (AUTO) 0.5 10^3/uL (0.1-1.4); ABSOLUTE NEUT (AUTO) 3.2 10^3/uL (1.7-8.2); BASOPHILS % (AUTO) 0.3 % (0-2); HEMATOCRIT 37.8 % (36.0-47.0); LYMPHOCYTES % (AUTO) 26.3 % (13-45); MEAN CORPUSCULAR HEMOGLOBIN 31.2 pg (27.0-33.4); MEAN CORPUSCULAR HGB CONC 34.3 g/dL (32.0-36.0); MEAN CORPUSCULAR VOLUME 91 fl (80-97); MONOCYTES % (AUTO) 9.2 % (3-13); PLATELET COUNT 193 10^3/uL (150-450); RED BLOOD COUNT 4.16 10^6/uL (3.72-5.28); RED CELL DISTRIBUTION WIDTH 14.8 % (11.5-14.0); SEGMENTED NEUTROPHILS % (AUTO) 63.2 % (42-78); TOTAL CELLS COUNTED % (AUTO) 100 %; WHITE BLOOD COUNT 5.1 10^3/uL (4.0-10.5)
[2019-11-30 16:26] LABS: ALBUMIN 4.7 g/dL (3.5-5.0); ALKALINE PHOSPHATASE 56 U/L (38-126); ANION GAP 9 (5-19); ASPARTATE AMINO TRANSFERASE 19 U/L (14-36); BILIRUBIN,TOTAL 0.4 mg/dL (0.2-1.3); BLOOD UREA NITROGEN 11 mg/dL (7-20); CALCIUM 9.2 mg/dL (8.4-10.2); CARBON DIOXIDE 27 mmol/L (22-30); CHLORIDE 102 mmol/L (98-107); GLUCOSE 102 mg/dL (75-110); POTASSIUM 4.1 mmol/L (3.6-5.0); TOTAL PROTEIN 7.2 g/dL (6.3-8.2)
[2019-11-30 16:28] LABS: ACETAMINOPHEN < 10 ug/mL (10-30); ALCOHOL < 10 mg/dL (NONE DETECTED); SALICYLATE < 1.0 mg/dL (2.0-20.0)
[2019-11-30 16:44] LABS: URINE AMPHETAMINES SCREEN NEGATIVE; URINE BARBITURATES SCREEN NEGATIVE; URINE BENZODIAZEPINES SCREEN NEGATIVE; URINE COCAINE SCREEN NEGATIVE; URINE MARIJUANA (THC) SCREEN NEGATIVE; URINE METHADONE SCREEN NEGATIVE; URINE PHENCYCLIDINE SCREEN NEGATIVE
--- NOTE | 2019-11-30 16:50 | ER Document Report ---
ED GI/ - General Chief Complaint: Nausea Stated Complaint: BLOOD PRESSURE CONCERNS,VOMITING Time Seen by Provider: 11/30/19 15:23 Primary Care Provider: Anna Doan [Outside] - Follow up as needed [facility] [Outside] - Follow up as needed [facility] [Outside] - Follow up as needed VIRGINIA LUCERO, SHALINI-C [NO LOCAL MD] - Follow up as needed Notes: Patient is a 24-year-old female presents to the emergency department with a chief complaint of vomiting and abdominal pain. She went to her primary care provider and she was referred here to the emergency department due to having a low blood pressure. Patient states that she has been vomiting for the past week. I saw the patient in triage and reassessed her. She states that she feels better after receiving Zofran. Patient then admitted to me that she did have suicidal ideation and feelings of hopelessness, but states that she sees a psychiatrist for this. History of autism and cerebral palsy. Patient was very tearful and said she wanted to go home. TRAVEL OUTSIDE OF THE [place] IN LAST 30 DAYS: No - Related Data Allergies/Adverse Reactions: No Known Allergies Allergy (Verified 10/30/18 07:55) Home Medications: Aviane. B Complex. Fluoxetine. Lamotrigine. Zofran. Protonix. Prazosin. Propranolol. Trazodoone Past Medical History - Social History Smoking Status: Never Smoker Chew tobacco use (# tins/day): No Drug Abuse: None Family History: Reviewed & Not Pertinent Patient has homicidal ideation: No Renal/ Medical History: Denies: Hx Peritoneal Dialysis GI Medical History: Reports: Hx Gastroesophageal Reflux Disease Review of Systems - Review of Systems Notes: REVIEW OF SYSTEMS: CONSTITUTIONAL : Denies recent illness. Denies recent unintentional weight loss. Denies fever, chills, or sweats. EENT: Denies eye, ear, throat, or mouth pain, discharge, or symptoms. Denies nasal or sinus congestion. CARDIOVASCULAR: Denies chest pain. RESPIRATORY: Denies shortness of breath, cough, congestion, difficulty breathing, or wheezing. GASTROINTESTINAL: See HPI. GENITOURINARY: Denies difficulty urinating, burning, blood in urine, urgency or frequency. MUSCULOSKELETAL: Denies neck and back pain. Denies joint pain or swelling. SKIN: Denies rash, itchiness, or lesions HEMATOLOGIC : Denies easy bruising or bleeding. LYMPHATIC: Denies swollen, painful, enlarged glands. NEUROLOGICAL: Denies no numbness or tingling denies weakness. Denies headache. Denies altered mental status. Denies alteration in speech. PSYCHIATRIC: See HPI. All other systems reviewed and negative. Physical Exam - Vital signs Vitals: Temp Pulse Resp BP Pulse Ox 98.1 F 80 18 97/56 L 98 11/30/19 15:00 11/30/19 15:00 11/30/19 15:11/30/19 15:11/30/19 15:00 - Notes Notes: PHYSICAL EXAMINATION: GENERAL: Appears very thin, no acute distress. HEAD: Normocephalic, atraumatic. EYES: PERRL, conjunctiva normal, all extraocular movements intact, sclera nonicteric ENT: Moist mucous membranes. NECK: Supple, no noticeable swelling, redness, rash. Normal range of motion. LUNGS: Equal breath sounds bilaterally and clear to auscultation. No wheezes rales or rhonchi. CARDIOVASCULAR: S1-S2, regular rate, regular rhythm. Radial pulses 2+, normal. ABDOMEN: Normoactive bowel sounds. Soft, nontender, no guarding, no rebound tenderness, and no masses palpated. EXTREMITIES: Normal strength and range of motion, no pitting or edema. No cyanosis. NEUROLOGICAL: Moves all extremities upon command. Strength 5/5 in all extremities. PSYCH: Normal mood, normal affect. SKIN: Warm, dry. No rash, lesions, ulcerations noted. Normal skin turgor. Course - Re-evaluation Re-evalutation: 11/30/19 16:44 Patient stated that she wanted to go home. I calmly spoke to the patient about the importance of staying here in the emergency department to figure out why she was vomiting so much. Patient agrees to stay for lab results. 11/30/19 17:28 Hematology is surprisingly unremarkable, as patient states that she has been vomiting for the past week. Chemistries are also unremarkable with normal LFTs and lipase. hCG is negative. Urinalysis is normal. Salicylates, acetaminophen, and alcohol are normal. Urine drug screen is negative. Discussed case with mental health. They state that the patient felt scared, which she did appear scared to be in the hospital. Patient's blood pressure is 90s over 50s. She received a liter of IV fluids. She is rather thin, which this blood pressure is most likely her normal. She will follow-up with her primary care provider. Follow-up precautions were given. Verbal discharge inst ructions were given to the patient. They verbalized understanding. They are stable for discharge. - Vital Signs Vital signs: Temp Pulse Resp BP Pulse Ox 97.8 F 80 18 96/63 L 97 11/30/19 15:21 11/30/19 15:00 11/30/19 15:00 11/30/19 16:30 11/30/19 16:30 - Laboratory Result Diagrams: 11/30/19 15:55 11/30/19 15:55 Laboratory results interpreted by me: 11/30/19 11/30/19 11/30/19 15:55 15:55 15:55 RDW 14.8 H Urine Urobilinogen 4.0 H Urine Ascorbic Acid 20 H Salicylates < 1.0 L Acetaminophen < 10 L Discharge - Discharge Clinical Impression: Depression Qualifiers: Depression Type: unspecified Qualified Code(s): F32.9 - Major depressive disorder, single episode, unspecified Vomiting Qualifiers: Vomiting type: unspecified Vomiting Intractability: unspecified Nausea presence: with nausea Qualified Code(s): R11.2 - Nausea with vomiting, unspecified Diarrhea Qualifiers: Diarrhea type: unspecified type Qualified Code(s): R19.7 - Diarrhea, unspecified Condition: Stable Disposition: HOME, SELF-CARE Additional Instructions: You are seen today in the emergency department for vomiting. Your labs are normal. Please take Reglan as needed for nausea or vomiting. You have been evaluated by both medical and behavioral health teams and have been deemed appropriate for discharge. While in the emergency department you received the following services: Medical screening and assessment, behavioral health evaluation for concerns related to depression, and nursing services. 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) for medication management and have therapy via video chat. There were concerns for depression however it appears given unfamiliar place and without natural support present it increased anxiety. Please continue with your video chat for therapy and medication management at [facility]. Depression (can be situational like in unfamiliar place without natural support and being ill) Your evaluation reveals that you have mental depression. While symptoms may be vague, they often include disturbance of sleep, fatigue, loss of appetite, and general loss of interest in life. While depression may be a side effect of drugs, or a reaction to a major change in your life, many cases have no known cause. If depression is acute, and related to a major loss in your life, you can expect it to clear completely with time. If you have been depressed a long time, are prone to repeated bouts of depression or low mood, or have been thinking of suicide, get help. Depression can be treated with anti-depressant medication and counselling. Long-term depression will often take a few weeks to clear, even with appropriate medication. Follow-up care is important. Contact your physician, the hospital emergency center, crisis line, or your counsellor if you are losing control or having self-destructive thoughts. Anxiety (can be situational like in unfamiliar place without natural support and being ill) The physician feels that some of your health problems are being caused by anxiety. Anxiety affects your health in many ways. Anxiety alone can cause palpitations, sweats, chest pains, abdominal pains, shortness of breath, and headaches. It contributes to ulcer disease, high blood pressure, irritable bowel syndrome, and has been shown to cause flare-ups of many other diseases. Anxiety is not a simple disorder to treat. If the anxiety is due to recent life stresses, you may simply need time to "work through" the changes. If the anxiety is due to an underlying unhappiness with yourself or due to psychiatric disturbance, professional help will be needed. Your physician can refer you for further help if needed. Anti-anxiety medication is occasionally given if the stress is acute or if you are having trouble sleeping. Chronic or frequent use of these medications is not a good idea because the body becomes reliant on it, preventing you from dealing with life's normal stresses. If these symptoms persist or worsen contact your physician immediately, return to the emergency department or utilize mobile crisis. Prescriptions: Metoclopramide HCl [Reglan 10 mg Tablet] 1 - 2 tab PO ASDIR PRN #30 tablet PRN Reason: Referrals: [facility] [Outside] - Follow up as needed [facility] [Outside] - Follow up as needed [facility] [Outside] - Follow up as needed VIRGINIA LUCERO FNP-C [NO LOCAL MD] - Follow up in 3-5 days
[2019-11-30 17:35] VITALS: BP 103/66
--- NOTE | 2019-11-30 19:12 | EKG REPORT ---
SEVERITY:- BORDERLINE ECG - SINUS RHYTHM BORDERLINE RIGHT AXIS DEVIATION BORDERLINE T ABNORMALITIES, ANTERIOR LEADS : Confirmed by: Angel Villasenor MD 30-Nov-2019 19:11:36
--- NOTE | 2019-12-01 03:36 | PSYCHOLOGICAL NOTE ---
Psych Note - Psych Note Date seen by psych provider: 11/30/19 Time seen by psych provider: 17:99 - [id number] Psych Note: Presenting Problem: Patient is a 24 year old female who presented to the [facility] ED today upon referral from [facility] for medical issues (vomiting and BP). Upon evaluation ED Physician noted patient screened positive for depression and suicidal ideation questions/scales. Patient identified "they asked be if I was down and I said yes because I'm not feeling good." She further reported "I don't do well in unfamiliar places without someone that's why I wigged out." Patient stated "I'm scared, I don't want to sit here al day, I don't like being by myself in a strange place for long." She admitted to history, said she does video chat for therapy and goes to [facility] for medication management. She reported she is prescribed Propanolol and Prozac. She denied SI. Patient was alert and oriented to self, person, place, time and situation. Mood was euthymic with congruent affect. She denied current SI/HI and admitted to saying she felt down because not feeling good and being scared since she is in an unfamiliar place without someone. Patient did not appear to be responding to internal stimuli as evidenced by fair eye contact and answering questions appropriately when addressed. Conversational speech was within normal limits for rate, tone and prosody. Intellectual abilities are estimated to be average. Thought process were linear and organized. Insight, judgment and impulse control were fair as evidenced by explaining self. Collateral: Patient was on her cell phone with her mother October. 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 She identified they have been dealing with this since patient was 3 years old, confirmed [facility] for medication management and video chat for therapy and commented "I have no concern for her MH she is stable." She reported patient has been closed up in the house, has been ill and now cannot have someone familiar by her side while in the hospital. She stated it has increased her anxiety. Interventions: Used open ended questioning to obtain information regarding current crisis situation and past, as well as to get patient to elaborate. Diagnosis: Increased Anxiety (situational) Positive Suicidal Ideation Screening Positive Depression Screening Per mother Hx of Lissencephalopathy which causes emotionality Medication recommendations made by the psychiatric medication provider Dr. Nacho MD., includes: None at this time Impression/Plan: Patient is cleared from acute psychiatric services. She answered questions for the depression and screening questions in such a way that scored her high. Patient denied SI, admitted to answering yes to feeling down because she is not feeling good and was able to explain how she is scared because in unfamiliar place without someone. Mother on phone noted Hx of Lissenencephalopathy which affects emotionality. Mother noted increased anxiety due to being closed up in the house, being ill and now having to seek medical attention without someone by her side. Mother denied concern for MH and said she is stable. Patient has medication management at [facility] and is involved in video chat for therapy, all of which mother confirmed. Consulted with Dr. Schwartz regarding the management and care of patient. ED Physician in agreement with recommendations.
== END 2019-11-30 17:42 | disposition home or self-care (01) ==
LOC: ER 14:55
DX: F32.9 Major depressive disorder, single episode, unspecified (principal); R11.2 Nausea with vomiting, unspecified; R19.7 Diarrhea, unspecified; R10.9 Unspecified abdominal pain
CPT/HCPCS: 93005; 99285; 96361; 96374; 36415; 80307 ×4; 83690; 84703; 85025; 80053; 81001; 93010; J2765; J7030